=== PATIENT | male | born 1970 | race Hispanic/Latino ===

== ENCOUNTER 2018-02-21 14:09 | Emergency (ER) | payer MEDICAID ==
[2018-02-21] MEDS ORDERED: TETANUS/DIPHTHERIA TOXOID [ADULT] 0.5 ML VIAL IM ONE (14:43)
[2018-02-21] MEDS ORDERED: CEFAZOLIN SODIUM 1 GM VIAL ONE (15:15)
== END 2018-02-21 16:04 | disposition home or self-care (01) ==
LOC: EDH 14:09
DX: S61.431A Puncture wound without foreign body of right hand, initial encounter (principal); W31.0XXA Contact with mining and earth-drilling machinery, initial encounter; Y93.89 Activity, other specified; Y92.098 Other place in other non-institutional residence as the place of occurrence of the external cause; Y99.8 Other external cause status
CPT/HCPCS: 73130; 90471; 90714; 96372; 99283; A4218; J0690